=== PATIENT | female | born 1950 | race Caucasian/White ===

== ENCOUNTER 2020-05-30 15:10 | Outpatient (REF) | payer MEDICARE, SELFPAY | END 2020-05-30 15:11 | disposition home or self-care (01) | LOC: HO.LNP 15:10 | PROVIDERS: Visit Provider Internal Medicine | DX: Z20.828 Contact with and (suspected) exposure to other viral communicable diseases (principal) | CPT/HCPCS: U0003 ==

== ENCOUNTER 2020-08-01 07:16 | Outpatient (REF) | payer MEDICARE, SELFPAY ==
[2020-08-01 07:39] LABS: MANUAL DIFF FLAG NO
[2020-08-01 07:47] LABS: Basophils Percent Auto 0.6 % (0-2); Eosinophils Absolute Auto 0.2 X10*3/uL (0.0-0.4); Eosinophils Percent Auto 2.1 % (0-4); Hematocrit 44.7 % (37-47); Hemoglobin 14.8 g/dl (12.0-16.0); Imm Gran Abs Auto 0.03 X10*3/uL (0.00-0.03); Imm Gran Pct Auto 0.4 % (0.0-0.4); Lymphocytes Absolute Auto 2.5 X10*3/uL (1.2-4.9); Lymphocytes Percent Auto 35.2 % (20-40); Mean Corpuscular HGB Conc 33.1 g/dl (31.0-35.0); Mean Corpuscular Hemoglobin 28.8 pg (27.0-33.0); Mean Platelet Volume 10.3 fL (9.4-12.3); Monocytes Absolute Auto 0.5 X10*3/uL (0.1-1.2); Monocytes Percent Auto 6.5 % (2-11); Neutrophils Absolute Auto 3.9 X10*3/uL (2.0-8.3); Neutrophils Percent Auto 55.2 % (45-73); Platelet Count 225 X10*3/uL (160-400); Red Blood Count 5.14 X10*6/uL (4.20-5.50); Red Cell Distribution Width 12.1 % (11.0-16.0); White Blood Count 7.1 X10*3/uL (4.8-10.8)
[2020-08-01 07:56] LABS: Estimated Average Glucose 309 mg/dL; Hemoglobin A1c % 12.4 %
[2020-08-01 08:39] LABS: Alanine Aminotransferase 18 U/L (0-31); Albumin Level 4.3 g/dL (3.5-5.0); Alkaline Phosphatase 62 U/L (39-117); Anion Gap 14 (12-20); Aspartate Amino Transferase 14 U/L (5-31); Bilirubin Total 0.5 mg/dL (0.0-1.0); Blood Urea Nitrogen 10 mg/dL (9-16); Calcium 9.2 mg/dL (8.4-10.2); Carbon Dioxide 30 mmol/L (22-29); Chloride 95 mmol/L (96-108); Cholesterol 235 mg/dL; Estimated Glomerular Filt Rate > 60; Glucose Fasting 212 mg/dL (60-99); HDL Cholesterol 46 mg/dL; LDL Cholesterol Calculated 155 mg/dl; Potassium 4.6 mmol/L (3.3-5.1); Sodium 134 mmol/L (135-145); Total Protein 6.9 g/dL (6.5-8.0); Triglycerides 172 mg/dL
[2020-08-01 08:40] LABS: Creatinine Urine 91.15 mg/dL
== END 2020-08-01 07:17 | disposition home or self-care (01) ==
LOC: HO.LAB 07:16
PROVIDERS: Visit Provider Internal Medicine
DX: E11.9 Type 2 diabetes mellitus without complications (principal); I10 Essential (primary) hypertension; E78.00 Pure hypercholesterolemia, unspecified
CPT/HCPCS: 36415; 80053; 80061; 82043; 83036; 85025

== ENCOUNTER 2020-11-25 14:53 | Outpatient (REF) | payer MEDICARE, SELFPAY ==
--- NOTE | ~2020-11-25 | US_ITS ---
EXAMINATION: PELVIC ULTRASOUND CLINICAL INFORMATION: Question uterine prolapse COMPARISON: None TECHNIQUE: Transabdominal and transvaginal pelvic ultrasound was performed. Transvaginal exam was performed for better visualization of the uterus and ovaries. FINDINGS: The uterus appears normal in position, is anteverted and measures 7.1 x 2.6 x 3.1 cm in dimension. No focal uterine lesion is seen. There are several small calcifications seen in the uterus. The endometrium does not appear thickened measuring 0.4 cm. The cervix is normal appearing. The ovaries are not seen. There is no fluid in the pelvis. The bladder wall appears thickened. There is a mobile echogenic debris in the bladder. Correlation with urinalysis and culture recommended. US/US pelvic and transvaginal IMPRESSION: Normal-appearing uterus. Ovaries not seen. Thickened bladder wall and mobile echogenic debris in the bladder. Correlation with urinalysis and urine culture recommended.
== END 2020-11-25 14:54 | disposition home or self-care (01) ==
LOC: HO.US 14:53
PROVIDERS: PCP Internal Medicine; Visit Provider Internal Medicine
DX: N18.4 Chronic kidney disease, stage 4 (severe) (principal)
CPT/HCPCS: 76830; 76856

== ENCOUNTER 2020-12-04 06:01 | Outpatient (REF) | payer MEDICARE, SELFPAY ==
[2020-12-04 07:40] LABS: Estimated Average Glucose 326 mg/dL
[2020-12-04 07:45] LABS: Alanine Aminotransferase 17 U/L (0-31); Albumin Level 4.2 g/dL (3.5-5.0); Alkaline Phosphatase 71 U/L (39-117); Anion Gap 14 (12-20); Aspartate Amino Transferase 13 U/L (5-31); Bilirubin Total 0.4 mg/dL (0.0-1.0); Blood Urea Nitrogen 14 mg/dL (9-16); Calcium 9.6 mg/dL (8.4-10.2); Carbon Dioxide 30 mmol/L (22-29); Chloride 96 mmol/L (96-108); Estimated Glomerular Filt Rate > 60; Glucose Fasting 330 mg/dL (60-99); Potassium 5.3 mmol/L (3.3-5.1); Sodium 135 mmol/L (135-145); Total Protein 6.7 g/dL (6.5-8.0)
== END 2020-12-04 06:02 | disposition home or self-care (01) ==
LOC: HO.LAB 06:01
PROVIDERS: PCP Internal Medicine; Visit Provider Internal Medicine
DX: I10 Essential (primary) hypertension (principal); E11.9 Type 2 diabetes mellitus without complications
CPT/HCPCS: 36415; 80053; 83036

== ENCOUNTER 2020-12-16 09:58 | Outpatient (REF) | payer MEDICARE, SELFPAY ==
[2020-12-16 12:08] LABS: Glucose Urine UA >=1000 MG/DL (NEG); Leukocyte Esterase Urine 2+ (NEG); Nitrite Urine POS (NEG); Specific Gravity - Urine 1.025 (1.005-1.025); Urine Blood 2+ (NEG); Urine Ketones NEG (NEG); Urine Protein 2+ MG/DL (NEG-TRACE)
[2020-12-16 12:10] LABS: Appearance Urine CLOUDY; Color Urine YELLOW
[2020-12-16 13:06] LABS: Bacteria Urine 3+ /LPF; Squamous Epithelial Cell Urine 2+ /LPF; WBC Urine TNTC /HPF (0-4)
== END 2020-12-16 09:59 | disposition home or self-care (01) ==
LOC: HO.LAB 09:58
PROVIDERS: PCP Internal Medicine; Visit Provider Internal Medicine
DX: R30.0 Dysuria (principal)
CPT/HCPCS: 81001; 81003; 87086; 87088; 87186

== ENCOUNTER → 2020-12-23 11:12 | Outpatient (REF) | payer MEDICARE, SELFPAY ==
--- NOTE | 2020-12-23 11:30 | CA_ITS ---
Transthoracic Echocardiogram Patient (Last, First, Middle): Megan Novoa C Gender: Female Date of : 1950 Age: 70 Procedure Date: 12/23/2020 Procedure Type: Transthoracic Echocardiogram Location: OP Height: 167.64 cm Weight: 90.72 kg BSA: 2.00 m2 Heart Rate: bpm BP: 138 / 60 mmHg Hole Puncher Strap: JUANITO Referring MD: Jace Henderson MD Symptoms: R01.1 CARDIAC MURMUR Study Quality: Fair ECG Rhythm: Sinus Conclusions: - The left ventricular systolic function is hyperdynamic. The visually estimated ejection fraction is >70%. - There is moderately increased left ventricular wall thickness. - There is moderate calcification of the aortic valve. There is mild aortic valve stenosis. - There is mild mitral annular calcification. Findings Left Ventricle Normal left ventricular cavity size. There is moderately increased left ventricular wall thickness. The left ventricular systolic function is hyperdynamic. The visually estimated ejection fraction is >70%. There is no evidence of regional wall motion abnormalities. E/E prime ratio is >15, consistent with elevated filling pressures. Evidence suggests grade I (mild) diastolic dysfunction. Right Ventricle Normal right ventricular cavity size and systolic function. Atria Both atria are normal in size. Aortic Valve There is moderate calcification of the aortic valve. There is mild aortic valve stenosis. The peak aortic velocity is 2.90 m/s with a calculated peak gradient of 34 mmHg. The mean gradient is 20 mmHg. The aortic valve area is 1.90 cm2. There is no aortic valve regurgitation. Mitral Valve There is mild mitral annular calcification. There is mild mitral valve regurgitation. There is no mitral valve stenosis. Pulmonic Valve The pulmonic valve was not well visualized. Tricuspid Valve There is trace tricuspid valve regurgitation. The pulmonary artery systolic pressure is normal. Great Vessels The asc aorta is normal in size. Venous The inferior vena cava is normal in size and collapses greater than 50% with inspiration. Pericardium/Pleural There is no evidence of pericardial effusion. Prior Study Comparison No significant change compared to prior study dated: 02/06/2019. Measurements M-Mode Liner Measurements Normals - Women/Men IVSd: 1.68 0.6-0.9/0.6-1.0 cm LVIDd: 4.06 3.9-5.3/4.2-5.9 cm LVIDd Index: 2.03 1.9-3.2 cm/m2 LVIDs: 2.07 2.0-3.8 cm LVPWd: 1.62 0.6-0.9/0.6-1.0 cm LV Mass: 345.04 67-162/88-224g LV Mass Index: 172.52 43-95/49-115 g/m2 M-Mode Volumes LV EDV: 72.50 LV ESV: 13.90 2D Linear Measurements IVSd: 1.30 0.6-0.9/0.6-1.0 cm LVIDd: 4.00 3.9-5.3/4.2-5.9 cm LVIDd Index: 2.00 2.4-3.2/2.2-3.1 cm/m2 LVIDs: 2.19 2.0-3.6 cm LVPWd: 1.30 0.7-1.1 cm Ao Root: 3.00 2.1-3.5 cm LA Diam: 4.80 2.7-3.8/3.0-4.0 cm LAIDs Index: 2.40 1.5-2.3 cm/m2 LV Mass: 400.87 67-162/88-224 g LV Mass Index: 200.44 43-95/49-115 g/m2 LVOT Diam: 2.30 3.0+(-)1.3 cm 2D Systolic Function EF 4C: 65.60 >55% M-Mode Systolic Function FS: 49.00 27-47/25-43% LVEF: 80.80 >55% Mitral Valve MV Pk E: 0.92 MV PK A: 1.13 MV Decel Time: 115.00 E/A: 0.80 E'Lateral: 6.31 E'Medial: 4.13 E/E' Med: 22.20 E/E' Lat: 14.50 PHT: 34.00 MVA PHT: 6.47 Decel Yates: 8.32 Aortic Valve AoV Pk Satish: 2.90 AoV Mn Satish: 2.08 AoV VTI: 0.64 AoV Pk Grad: 34.00 Aov Mn Grad: 20.00 PAM Cont.VTI: 1.90 LVOT LVOT Pk Satish: 1.32 LVOT Mn Satish: 0.98 LVOT VTI: 0.29 LVOT Pk Grad: 7.00 LVOT Mn Grad: 4.00 LVOT Diam: 2.30 LVOT Area: 4.15 Diastolic Function MV Pk E: 0.92 MV Pk A: 1.13 E/A: 0.80 E'Medial: 4.13 E/E' Med: 22.20 E' Laterial: 6.31 E/E' Lat: 14.50 Tricuspid Valve RA Press: 3.00 Great Vessels Aorta Ao Root-2D: 3.00 2.0-3.7 cm Ao Asc: 3.50 2.1-3.4 cm Updated in Other Vendor System with Status of Final Parish Lowe MD electronically signed on 12/23/2020 12:53:42 PM with status of Final
== END ==
LOC: HO.CARD 11:12
PROVIDERS: PCP Internal Medicine; Visit Provider Internal Medicine
DX: R01.1 Cardiac murmur, unspecified (principal)
CPT/HCPCS: 93306

== ENCOUNTER 2020-12-26 11:10 | Outpatient (REF) | payer MEDICARE, SELFPAY ==
[2020-12-26 11:50] LABS: Glucose Urine UA >=1000 MG/DL (NEG); Leukocyte Esterase Urine 1+ (NEG); Nitrite Urine NEG (NEG); PH 5.5 (5.0-8.0); Specific Gravity - Urine 1.015 (1.005-1.025); UACC Culture Trigger YES; Urine Blood 1+ (NEG); Urine Ketones NEG (NEG); Urine Protein TRACE MG/DL (NEG-TRACE)
[2020-12-26 12:12] LABS: Color Urine YELLOW
[2020-12-26 12:13] LABS: Appearance Urine CLOUDY
[2020-12-26 12:16] LABS: Bacteria Urine 2+ /LPF; Mucus Urine 1+ /LPF; Squamous Epithelial Cell Urine 3+ /LPF
== END 2020-12-26 11:11 | disposition home or self-care (01) ==
LOC: HO.LAB 11:10
PROVIDERS: PCP Internal Medicine; Visit Provider Internal Medicine
DX: R30.0 Dysuria (principal)
CPT/HCPCS: 81001; 81003; 87086

== ENCOUNTER → 2021-02-10 13:38 | Outpatient (BNVA) | payer MEDICARE, SELFPAY | PROVIDERS: PCP Internal Medicine; Referring Provider Internal Medicine; Visit Provider Internal Medicine | DX: I51.7 Cardiomegaly (principal); I10 Essential (primary) hypertension; I35.0 Nonrheumatic aortic (valve) stenosis; I05.9 Rheumatic mitral valve disease, unspecified; E11.8 Type 2 diabetes mellitus with unspecified complications | CPT/HCPCS: 93005; 99202 ==

== ENCOUNTER → 2021-03-03 07:47 | Outpatient (REF) | payer MEDICARE, SELFPAY ==
--- NOTE | ~2021-03-03 | NM_ITS ---
Exercise Myocardial perfusion study Indication: Shortness of breath evaluate for myocardial ischemia Technique: The patient was brought in for an exercise perfusion study on 03/03/2021. Patient performed exercise as per Joe protocol and was injected 30 mCi of sestamibi was given intravenously one target HR was achieved. Images were obtained using the SPECT gamma camera interlaced with the gating device. Images were obtained in supine position. Resting perfusion study was performed on 03/06/2021. Patient was administered 30 mCi of sestamibi intravenously at rest. Images were then obtained in supine position. Images obtained with and without CT attenuation. Total DLP 125 mGy-cm. Images were processed with the software and compared side to side in short axis, horizontal long axis and vertical long axis views. Findings: The stress perfusion study showed nonattenuated images show minimal thinning of the apical wall of the LV myocardium. Remainder of the LV myocardium is normally perfused. Attenuation corrected images show normal uptake of radiotracer in all segments of LV myocardium. The gated study shows normal LV systolic function with calculated LVEF of 55%. LV cavity is normal in in size. The gated study shows normal systolic wall thickening and contraction of all segments. There is no transient ischemic dilation. Resting study shows no change in perfusion pattern compared to stress perfusion study. Gating at rest reveals normal systolic wall motion with ejection fraction at 61%. The findings are consistent with normal myocardial perfusion. NM/NM cardiolite stress test Impression: 1. Normal myocardial perfusion 2. Gated LVEF is 55% 3. Transient ischemic dilatation not present Stress EKG is positive for ischemia
--- NOTE | 2021-03-03 08:00 | CA_ITS ---
Acquisition Time: 2021-03-03 08:02:20 Total Exercise Time: 00:05:00 Test Indications: ABN ECHO, CAD Medications: GLIPIZIDE LISINOPRIL METFORMIN Protocol: KEILY Max HR: 142 BPM 95% of Pred: 148 BPM Max BP: 196/076 mmHG Max Work Load: 7.0 METS Exercise stress test with exercise 5 min of Keily protocol, with 3/10 mid chest heaviness, moderate shortness of breath, with PACs noted at baseline, with normotensive response to exercise, with max BP 196/76, with EKG changes meeting criteria for ischemia: up to [address] depression V5-V6, 1mm ST elevation aVR with gradual improvement back to baselineT wave inversions lateral leads, with borderline ST depression inferiorly during recovery. At baseline and in recovery P waves have decreased voltage intermittently for unclear reason. Chest pressure and sob resolved in recovery. Nuclear images pending. test reviewed with Dr Patrick Referred By: Parish Lowe Overread By: HERMELINDO LOREDO
== END ==
LOC: HO.CARD 07:47
PROVIDERS: PCP Internal Medicine; Visit Provider Internal Medicine
DX: I05.9 Rheumatic mitral valve disease, unspecified (principal); R06.02 Shortness of breath
CPT/HCPCS: 78452; 93017; A9500

== ENCOUNTER 2021-03-10 06:00 | Outpatient (REF) | payer MEDICARE, SELFPAY ==
[2021-03-10 07:02] LABS: MANUAL DIFF FLAG NO
[2021-03-10 07:12] LABS: Basophils Percent Auto 0.4 % (0-2); Eosinophils Absolute Auto 0.1 X10*3/uL (0.0-0.4); Hematocrit 42.2 % (37-47); Hemoglobin 13.8 g/dl (12.0-16.0); Imm Gran Abs Auto 0.03 X10*3/uL (0.00-0.03); Imm Gran Pct Auto 0.4 % (0.0-0.4); Lymphocytes Absolute Auto 2.1 X10*3/uL (1.2-4.9); Lymphocytes Percent Auto 30.7 % (20-40); Mean Corpuscular HGB Conc 32.7 g/dl (31.0-35.0); Mean Corpuscular Hemoglobin 28.6 pg (27.0-33.0); Mean Corpuscular Volume 87.4 fL (80-98); Monocytes Absolute Auto 0.4 X10*3/uL (0.1-1.2); Monocytes Percent Auto 6.3 % (2-11); Neutrophils Absolute Auto 4.2 X10*3/uL (2.0-8.3); Neutrophils Percent Auto 60.2 % (45-73); Platelet Count 233 X10*3/uL (160-400); Red Blood Count 4.83 X10*6/uL (4.20-5.50); Red Cell Distribution Width 12.7 % (11.0-16.0); White Blood Count 6.9 X10*3/uL (4.8-10.8)
[2021-03-10 07:34] LABS: Creatinine Urine 64.52 mg/dL; Microalbum/Creatinine Ratio Ur 192.1 ug/mg cr
[2021-03-10 07:40] LABS: Alanine Aminotransferase 22 U/L (0-31); Albumin Level 4.3 g/dL (3.5-5.0); Alkaline Phosphatase 56 U/L (39-117); Anion Gap 13 (12-20); Aspartate Amino Transferase 16 U/L (5-31); Bilirubin Total 0.4 mg/dL (0.0-1.0); Blood Urea Nitrogen 12 mg/dL (9-16); Calcium 9.2 mg/dL (8.4-10.2); Carbon Dioxide 29 mmol/L (22-29); Chloride 99 mmol/L (96-108); Estimated Glomerular Filt Rate > 60; Glucose Fasting 252 mg/dL (60-99); Potassium 4.7 mmol/L (3.3-5.1); Sodium 136 mmol/L (135-145); Total Protein 6.8 g/dL (6.5-8.0)
[2021-03-10 07:52] LABS: Thyroid Stimulating Hormone 3.19 uIU/mL (0.32-4.0)
[2021-03-10 08:40] LABS: Estimated Average Glucose 315 mg/dL; Hemoglobin A1c % 12.6 %
== END 2021-03-10 06:01 | disposition home or self-care (01) ==
LOC: HO.LAB 06:00
PROVIDERS: PCP Internal Medicine; Visit Provider Internal Medicine
DX: E11.9 Type 2 diabetes mellitus without complications (principal); I10 Essential (primary) hypertension; E78.00 Pure hypercholesterolemia, unspecified; R53.83 Other fatigue
CPT/HCPCS: 36415; 80053; 82043; 83036; 84443; 85025

== ENCOUNTER → 2021-03-25 14:21 | Outpatient (BNVA) | payer MEDICARE, SELFPAY | PROVIDERS: PCP Internal Medicine; Referring Provider Internal Medicine; Visit Provider Nurse Practitioner Family | DX: I35.0 Nonrheumatic aortic (valve) stenosis (principal); I51.7 Cardiomegaly; I10 Essential (primary) hypertension; I05.9 Rheumatic mitral valve disease, unspecified; G47.10 Hypersomnia, unspecified; R94.31 Abnormal electrocardiogram [ECG] [EKG] | CPT/HCPCS: 99212 ==

== ENCOUNTER 2021-10-15 06:02 | Outpatient (REF) | payer MEDICARE, SELFPAY ==
[2021-10-15 06:16] LABS: MANUAL DIFF FLAG NO
[2021-10-15 06:54] LABS: Basophils Percent Auto 0.5 % (0-2); Eosinophils Absolute Auto 0.1 X10*3/uL (0.0-0.4); Eosinophils Percent Auto 1.7 % (0-4); Hematocrit 44.4 % (37.0-47.0); Hemoglobin 14.6 g/dl (12.0-16.0); Imm Gran Abs Auto 0.03 X10*3/uL (0.00-0.03); Imm Gran Pct Auto 0.4 % (0.0-0.4); Lymphocytes Absolute Auto 2.1 X10*3/uL (1.2-4.9); Lymphocytes Percent Auto 27.3 % (20-40); Mean Corpuscular HGB Conc 32.9 g/dl (31.0-35.0); Mean Corpuscular Hemoglobin 28.9 pg (27.0-33.0); Mean Corpuscular Volume 87.7 fL (80.0-98.0); Mean Platelet Volume 10.6 fL (9.4-12.3); Monocytes Absolute Auto 0.5 X10*3/uL (0.1-1.2); Monocytes Percent Auto 6.2 % (2-11); Neutrophils Percent Auto 63.9 % (45-73); Platelet Count 247 X10*3/uL (160-400); Red Blood Count 5.06 X10*6/uL (4.20-5.50); Red Cell Distribution Width 12.3 % (11.0-16.0); White Blood Count 7.8 X10*3/uL (4.8-10.8)
[2021-10-15 07:23] LABS: Alanine Aminotransferase 19 U/L (0-31); Albumin Level 4.2 g/dL (3.5-5.0); Alkaline Phosphatase 61 U/L (39-117); Anion Gap 14 (12-20); Aspartate Amino Transferase 13 U/L (5-31); Bilirubin Total 0.5 mg/dL (0.0-1.0); Blood Urea Nitrogen 10 mg/dL (9-16); Calcium 9.6 mg/dL (8.4-10.2); Carbon Dioxide 30 mmol/L (22-29); Chloride 94 mmol/L (96-108); Cholesterol 230 mg/dL; Estimated Glomerular Filt Rate > 60; Glucose Fasting 281 mg/dL (60-99); HDL Cholesterol 44 mg/dL; LDL Cholesterol Calculated 143 mg/dl; Potassium 4.5 mmol/L (3.3-5.1); Sodium 133 mmol/L (135-145); Total Protein 7.1 g/dL (6.5-8.0); Triglycerides 219 mg/dL
[2021-10-15 08:06] LABS: Estimated Average Glucose 341 mg/dL; Hemoglobin A1c % 13.5 %
== END 2021-10-15 06:03 | disposition home or self-care (01) ==
LOC: HO.LAB 06:02
PROVIDERS: PCP Internal Medicine; Visit Provider Internal Medicine
DX: E11.9 Type 2 diabetes mellitus without complications (principal); E78.00 Pure hypercholesterolemia, unspecified; I10 Essential (primary) hypertension
CPT/HCPCS: 36415; 80053; 80061; 83036; 85025

== ENCOUNTER 2022-02-08 05:52 | Outpatient (REF) | payer MEDICARE, SELFPAY ==
[2022-02-08 07:26] LABS: Estimated Average Glucose 344 mg/dL; Hemoglobin A1c % 13.6 %
[2022-02-08 07:35] LABS: Creatinine Urine 94.49 mg/dL
[2022-02-08 07:37] LABS: Alanine Aminotransferase 21 U/L (0-31); Albumin Level 4.2 g/dL (3.5-5.0); Alkaline Phosphatase 52 U/L (39-117); Anion Gap 16 (12-20); Aspartate Amino Transferase 14 U/L (5-31); Bilirubin Total 0.3 mg/dL (0.0-1.0); Blood Urea Nitrogen 15 mg/dL (9-16); Carbon Dioxide 27 mmol/L (22-29); Chloride 98 mmol/L (96-108); Cholesterol 187 mg/dL; Estimated Glomerular Filt Rate > 60; Glucose Fasting 307 mg/dL (60-99); HDL Cholesterol 44 mg/dL; LDL Cholesterol Calculated 112 mg/dl; Potassium 4.5 mmol/L (3.3-5.1); Sodium 136 mmol/L (135-145); Total Protein 6.8 g/dL (6.5-8.0); Triglycerides 156 mg/dL
== END 2022-02-08 05:53 | disposition home or self-care (01) ==
LOC: HO.LAB 05:52
PROVIDERS: Visit Provider Internal Medicine
DX: E11.9 Type 2 diabetes mellitus without complications (principal); I10 Essential (primary) hypertension; E78.00 Pure hypercholesterolemia, unspecified
CPT/HCPCS: 36415; 80053; 80061; 82043; 83036

== ENCOUNTER 2022-03-09 11:58 | Outpatient (REF) | payer MEDICARE, SELFPAY ==
[2022-03-09 12:59] LABS: Influenza A PCR NEGATIVE (Negative); Influenza B PCR NEGATIVE (Negative); Resp Syncy Virus RNA Qual PCR NEGATIVE (Negative); SARS COV2 PCR INHOUSE NEGATIVE (Negative)
== END 2022-03-09 11:59 | disposition home or self-care (01) ==
LOC: HO.LNP 11:58
PROVIDERS: Visit Provider Internal Medicine
DX: Z20.822 Contact with and (suspected) exposure to COVID-19 (principal); R05.9 Cough, unspecified
CPT/HCPCS: 0241U

== ENCOUNTER 2022-06-01 05:54 | Outpatient (REF) | payer MEDICARE, SELFPAY ==
[2022-06-01 07:41] LABS: Hemoglobin A1c % > 14.0 %
[2022-06-01 07:56] LABS: Anion Gap 15 (12-20); Blood Urea Nitrogen 14 mg/dL (9-16); Calcium 9.5 mg/dL (8.4-10.2); Carbon Dioxide 29 mmol/L (22-29); Chloride 96 mmol/L (96-108); Estimated Glomerular Filt Rate > 60; Glucose Random 340 mg/dL (60-115); Potassium 4.8 mmol/L (3.3-5.1); Sodium 135 mmol/L (135-145)
[2022-06-01 08:07] LABS: Microalbum/Creatinine Ratio Ur 995.9 ug/mg cr
== END 2022-06-01 05:55 | disposition home or self-care (01) ==
LOC: HO.LAB 05:54
PROVIDERS: PCP Internal Medicine; Visit Provider Internal Medicine
DX: I10 Essential (primary) hypertension (principal); E11.9 Type 2 diabetes mellitus without complications
CPT/HCPCS: 36415; 80048; 82043; 83036

== ENCOUNTER 2022-09-09 05:56 | Outpatient (REF) | payer MEDICARE, SELFPAY ==
[2022-09-09 06:02] LABS: MANUAL DIFF FLAG NO
[2022-09-09 07:31] LABS: Basophils Percent Auto 0.5 % (0-2); Eosinophils Absolute Auto 0.1 X10*3/uL (0.0-0.4); Eosinophils Percent Auto 1.5 % (0-4); Hematocrit 43.7 % (37.0-47.0); Hemoglobin 14.4 g/dl (12.0-16.0); Imm Gran Abs Auto 0.04 X10*3/uL (0.00-0.03); Imm Gran Pct Auto 0.5 % (0.0-0.4); Lymphocytes Absolute Auto 2.3 X10*3/uL (1.2-4.9); Lymphocytes Percent Auto 30.8 % (20-40); Mean Corpuscular Hemoglobin 28.5 pg (27.0-33.0); Mean Corpuscular Volume 86.4 fL (80.0-98.0); Monocytes Absolute Auto 0.5 X10*3/uL (0.1-1.2); Monocytes Percent Auto 6.9 % (2-11); Neutrophils Absolute Auto 4.4 x10*3/uL (2.0-8.3); Neutrophils Percent Auto 59.8 % (45-73); Platelet Count 225 X10*3/uL (160-400); Red Blood Count 5.06 X10*6/uL (4.20-5.50); Red Cell Distribution Width 12.4 % (11.0-16.0); White Blood Count 7.4 X10*3/uL (4.8-10.8)
[2022-09-09 07:41] LABS: Hemoglobin A1c % > 14.0 %
[2022-09-09 07:59] LABS: Alanine Aminotransferase 16 U/L (0-31); Albumin Level 4.2 g/dL (3.5-5.0); Alkaline Phosphatase 58 U/L (39-117); Anion Gap 16 (12-20); Aspartate Amino Transferase 14 U/L (5-31); Bilirubin Total 0.5 mg/dL (0.0-1.0); Blood Urea Nitrogen 12 mg/dL (9-16); Calcium 9.1 mg/dL (8.4-10.2); Carbon Dioxide 28 mmol/L (22-29); Chloride 97 mmol/L (96-108); Cholesterol 194 mg/dL; Estimated Glomerular Filt Rate > 60; Glucose Fasting 318 mg/dL (60-99); HDL Cholesterol 44 mg/dL; LDL Cholesterol Calculated 111 mg/dl; Potassium 4.9 mmol/L (3.3-5.1); Sodium 136 mmol/L (135-145); Total Protein 6.7 g/dL (6.5-8.0); Triglycerides 199 mg/dL
== END 2022-09-09 05:57 | disposition home or self-care (01) ==
LOC: HO.LAB 05:56
PROVIDERS: PCP Internal Medicine; Visit Provider Internal Medicine
DX: E11.9 Type 2 diabetes mellitus without complications (principal); E78.5 Hyperlipidemia, unspecified; I10 Essential (primary) hypertension
CPT/HCPCS: 36415; 80053; 80061; 83036; 85025

== ENCOUNTER 2023-01-06 05:59 | Outpatient (REF) | payer MEDICARE, SELFPAY ==
[2023-01-06 07:37] LABS: Estimated Average Glucose 318 mg/dL; Hemoglobin A1c % 12.7 %
[2023-01-06 08:27] LABS: Anion Gap 18 (12-20); Blood Urea Nitrogen 13 mg/dL (9-16); Calcium 9.7 mg/dL (8.4-10.2); Carbon Dioxide 24 mmol/L (22-29); Chloride 98 mmol/L (96-108); Cholesterol 170 mg/dL; Estimated Glomerular Filt Rate > 60; Glucose Random 305 mg/dL (60-115); HDL Cholesterol 42 mg/dL; LDL Cholesterol Calculated 99 mg/dl; Potassium 4.6 mmol/L (3.3-5.1); Sodium 135 mmol/L (135-145); Triglycerides 147 mg/dL
== END 2023-01-06 06:00 | disposition home or self-care (01) ==
LOC: HO.LAB 05:59
PROVIDERS: PCP Internal Medicine; Visit Provider Internal Medicine
DX: I10 Essential (primary) hypertension (principal); E11.9 Type 2 diabetes mellitus without complications
CPT/HCPCS: 36415; 80048; 80061; 83036

== ENCOUNTER 2023-04-15 05:59 | Outpatient (REF) | payer MEDICARE, SELFPAY ==
[2023-04-15 07:25] LABS: Estimated Average Glucose 243 mg/dL; Hemoglobin A1c % 10.1 % (<6.0)
[2023-04-15 07:40] LABS: Anion Gap 12 (12-20); Blood Urea Nitrogen 11 mg/dL (9-16); Calcium 9.3 mg/dL (8.4-10.2); Carbon Dioxide 29 mmol/L (22-29); Chloride 98 mmol/L (96-108); Estimated Glomerular Filt Rate > 60; Glucose Random 193 mg/dL (60-115); Potassium 4.4 mmol/L (3.3-5.1); Sodium 135 mmol/L (135-145)
== END 2023-04-15 06:00 | disposition home or self-care (01) ==
LOC: HO.LAB 05:59
PROVIDERS: PCP Internal Medicine; Visit Provider Internal Medicine
DX: I10 Essential (primary) hypertension (principal); J44.9 Chronic obstructive pulmonary disease, unspecified; E11.9 Type 2 diabetes mellitus without complications
CPT/HCPCS: 36415; 80048; 83036

== ENCOUNTER → 2023-05-10 07:54 | Outpatient (REF) | payer MEDICARE, SELFPAY ==
--- NOTE | 2023-05-10 07:58 | CA_ITS ---
Transthoracic Echocardiogram Patient (Last, First, Middle): Megan Novoa C Gender: Female Date of : 1950 Age: 73 Procedure Date: 05/10/2023 Procedure Type: Transthoracic Echocardiogram Location: OP Height: 167.64 cm Weight: 86.18 kg BSA: 1.96 m2 Heart Rate: bpm BP: 128 / 80 mmHg Drum Filler: Referring MD: Jace Henderson MD Packer Denture: Ford Patrick MD Symptoms: R10.0 ACUTE ABDOMEN. ASSES MURMUR LVH Study Quality: Fair ECG Rhythm: Sinus Conclusions: - 1. Normal LV ejection fraction 55-60% with moderate LVH with impaired relaxation filling pattern 2. Mildly dilated left atrium 3. Mild aortic stenosis 4. Upper limits of normal ascending aortic size 5. Normal RV systolic pressure 6. No gross pericardial effusion Findings Left Ventricle Normal left ventricular size and systolic function. There is moderately increased left ventricular wall thickness. The visually estimated ejection fraction is between 55-60%. Spectral Doppler is indicative of an impaired relaxation filling pattern. E/E prime ratio is between 8 and 15 consistent with indeterminate filling pressures. Peak GLS is -13.1%, which is moderately reduced. Right Ventricle Normal right ventricular cavity size and systolic function. Atria The left atrium is mildly dilated. Interatrial shunt cannot be excluded. The right atrium is likely dilated. Aortic Valve The aortic valve was not well visualized. There is mild calcification of the aortic valve. There is mild aortic valve stenosis. The peak aortic gradient is 22 mmHg.The mean gradient is 13 mmHg. The aortic valve area is 1.61 cm2. There is no aortic valve regurgitation. Mitral Valve There is mild anterior and moderate posterior mitral leaflet thickening. There is moderate mitral annular calcification. There is trace mitral valve regurgitation. There is no mitral valve stenosis. Pulmonic Valve The pulmonic valve is likely normal. Tricuspid Valve Normal tricuspid valve structure. There is trace tricuspid valve regurgitation. The right ventricular systolic pressure is normal. The right ventricular systolic pressure is 19 mmHg. Normal right atrial pressure. There is no evidence of pulmonary hypertension. Great Vessels The pulmonary artery was not well visualized. Venous The inferior vena cava is normal in size and collapses greater than 50% with inspiration. Pericardium/Pleural There is no evidence of pericardial effusion. Measurements 2D Linear Measurements IVSd: 1.56 0.6-0.9/0.6-1.0 cm LVIDd: 4.19 3.9-5.3/4.2-5.9 cm LVIDd Index: 2.14 2.4-3.2/2.2-3.1 cm/m2 LVIDs: 2.68 2.0-3.6 cm LVPWd: 1.48 0.7-1.1 cm Ao Root: 3.20 2.1-3.5 cm LA Diam: 4.70 2.7-3.8/3.0-4.0 cm LAIDs Index: 2.40 1.5-2.3 cm/m2 LV Mass: 316.55 67-162/88-224 g LV Mass Index: 161.50 43-95/49-115 g/m2 LVOT Diam: 2.20 3.0+(-)1.3 cm Mitral Valve MV Pk E: 0.59 MV PK A: 0.92 MV Decel Time: 261.00 E/A: 0.60 E'Lateral: 4.57 E'Medial: 4.57 E/E' Med: 12.80 E/E' Lat: 12.80 PHT: 76.00 MVA PHT: 2.89 Decel Harvey: 2.25 Aortic Valve AoV Pk Satish: 2.36 AoV Mn Satish: 1.70 AoV VTI: 0.52 AoV Pk Grad: 22.00 Aov Mn Grad: 13.00 PAM Cont.VTI: 1.61 LVOT LVOT Pk Satish: 0.90 LVOT Mn Satish: 0.57 LVOT VTI: 0.22 LVOT Pk Grad: 3.00 LVOT Mn Grad: 2.00 LVOT Diam: 2.20 LVOT Area: 3.80 Diastolic Function MV Pk E: 0.59 MV Pk A: 0.92 E/A: 0.60 E'Medial: 4.57 E/E' Med: 12.80 E' Laterial: 4.57 E/E' Lat: 12.80 Right Ventricle TAPSE (mm): 21.00 TVS' Satish: 9.00 Tricuspid Valve TR Pk Satish: 1.98 TR Pk Grad: 16.00 RA Press: 3.00 RVSP: 19.00 Great Vessels Aorta Ao Root-2D: 3.20 2.0-3.7 cm Ao Asc: 3.60 2.1-3.4 cm Pulmonary Valve PV Pk Satish: 0.89 Peak PV Grad: 3.00 Updated in Other Vendor System with Status of Final Ford Patrick MD electronically signed on 05/10/2023 6:52:37 PM with status of Final
== END ==
LOC: HO.CARD 07:54
PROVIDERS: PCP Internal Medicine; Visit Provider Internal Medicine
DX: R10.0 Acute abdomen (principal)
CPT/HCPCS: 93306; 93356

== ENCOUNTER → 2023-05-10 07:58 | Outpatient (BNV) | payer MEDICARE, SELFPAY | PROVIDERS: PCP Internal Medicine; Visit Provider Internal Medicine Cardiovascular Disease | DX: I35.0 Nonrheumatic aortic (valve) stenosis (principal) | CPT/HCPCS: 93306 ==

== ENCOUNTER 2023-07-12 08:03 | Outpatient (AMB) | payer MEDICARE, SELFPAY ==
--- NOTE | 2023-07-12 08:22 | A.OFFVIS_ITS ---
Intake Vital Signs 07/12/23 08:25 Height 5 ft 6 in Weight 202 lb 6.15 oz BMI 32.7 BP 180/80 H Blood Pressure Location Lt brachial Position Sitting Pulse 67 Intake Visit Reasons: Follow up per Dr. Henderson/Dharmesh LVH Intake Note: follow up Photographic Process Worker Required: No Accompanied by: Self / Same As Patient Allergies No Known Allergies Allergy (Verified 07/12/23 08:27) Medication List - Last Reconciled 07/12/23 by Parish Lowe MD biotin 1 mg PO DAILY glipizide 10 mg PO BID lisinopril 10 mg PO DAILY metformin 1,000 mg PO BID [id number]-FA-vit K-lut 8 mg iron-400 mcg-50 mcg (Centrum Silver Women) 1 tab PO DAILY omega-3 fatty acids (Fish Oil Concentrate) 1,000 mg PO DAILY semaglutide (Ozempic) mg subcut turmeric mg PO HPI HPI Comments History of Present Illness Details Megan has been referred for follow-up. A recent echocardiogram had shown moderate left ventricular hypertrophy. This is similar to a prior study from 2020. Today's blood pressure is quite high but she seems absolutely convinced that it is because of drinking numerous cups of coffee. When I mentioned that she might indeed be running high blood pressures she began somewhat defensive. She is not checking any home blood pressures but she still keeps repeating that her pressures are otherwise completely normal. In terms of symptoms, she does not have anything cardiac sounding like angina. We discussed about different risk factors for coronary disease including high blood pressure, diabetes extra but she stated that 'when it is my time, it is'. [facility] Surgical History No pertinent past surgical history Family History Father No problems noted. Mother Heart disease Social History Alcohol intake: never Patient Tobacco Use Status: Former Tobacco user Quit Date: 11/19/2003 Review of Systems Const Denies weakness ENT Denies dizziness Card Denies chest pain, Denies chest pain with activity, Denies syncope, Denies rapid heart rate, Denies pedal edema, Denies edema, Denies leg edema, Denies lightheadedness, Denies palpitations, Denies dyspnea, Denies dyspnea on exertion and Denies orthopnea Resp Denies cough, Denies dyspnea and Denies dyspnea on exertion GI Denies hematochezia and Denies change in stool character Musc Denies abnormal gait, Denies muscle cramps, Denies muscle weakness, Denies numbness, Denies radiating pain into limb and Denies tingling Neuro Denies abnormal gait, Denies dizziness, Denies syncope, Denies numbness, Denies tingling and Denies weakness Endo Denies palpitations Physical Exam Vital Signs: Last Vital Signs Pulse 67 07/12/23 08:25 BP 180/80 H 07/12/23 08:25 BMI result Body Mass Index 32.7 Const General: comfortable and no acute distress Orientation/consciousness: patient oriented x3 HEENT Other: Unremarkable Head: Yes normal to inspection Neck Neck: Yes normal visual inspection Chest Chest palpation & inspection: normal inspection of the chest Resp Auscultation: clear to auscultation bilaterally Cardio Palpation: normal PMI Heart sounds: S1 normal heart sound present, S2 normal heart sound present, no gallops, no murmurs and no rubs GI Palpation (GI): Soft to palpation Back/Spine/Pelvis Other: unremarkable Skin General skin exam: no rashes or lesions noted Neuro General: patient oriented x3 Extrem General: Yes normal to inspection Psych Mental Status: mental status grossly normal Office Procedures EKG Details: EKG with sinus rhythm at 67/Min; possible old anteroseptal infarct versus from body habitus; lateral T inversions. Similar to prior EKG. [id number], Complete Assessment & Plan Assessment & Plan (1) LVH (left ventricular hypertrophy): Code(s): I51.7 - Cardiomegaly Plan: Left ventricular hypertrophy seen on the echocardiogram is likely from hypertension. Today's blood pressure is quite high, but she is absolutely convinced it is because of coffee and not interested in any suggestions. We discussed about home blood pressure monitoring but she does not want to do that either. She insisted that her pressures are otherwise completely normal. She finally stated that she will just follow that up with her own PCP during the next appointment coming up later this week. Myocardial perfusion imaging study from 2020 showed normal perfusion. (2) Essential hypertension: Code(s): I10 - Essential (primary) hypertension Plan: Per patient preference, may follow up with her own PCP for any medication changes. (3) Non-rheumatic aortic stenosis: Code(s): I35.0 - Nonrheumatic aortic (valve) stenosis Plan: Mild aortic stenosis on the echocardiogram. Not hemodynamically significant at this time. Consider another echocardiogram in about 3 years. (4) Mitral annular calcification: Code(s): I05.9 - Rheumatic mitral valve disease, unspecified Plan: Moderate mitral annular calcification on the echocardiogram. However, no significant valvular dysfunction. Coding Level of Care Code Est Pt Level 4 (07412) Diagnoses LVH (left ventricular hypertrophy) I51.7 Essential hypertension I10 Non-rheumatic aortic stenosis I35.0 Mitral annular calcification I05.9 CPT Codes EKG - CPT: 37617-[id number], Complete ([id number])
[2023-07-12 08:25] VITALS: BP 180/80; PULSE 67; BMI 32.7
== END 2023-07-12 08:42 | disposition home or self-care (01) ==
PROVIDERS: PCP Internal Medicine; Visit Provider Internal Medicine
DX: I51.7 Cardiomegaly (principal); I10 Essential (primary) hypertension; I35.0 Nonrheumatic aortic (valve) stenosis; I05.9 Rheumatic mitral valve disease, unspecified
CPT/HCPCS: 93010; 99214

== ENCOUNTER → 2023-07-12 08:03 | Outpatient (BNVA) | payer MEDICARE, SELFPAY | PROVIDERS: PCP Internal Medicine; Visit Provider Internal Medicine | DX: I11.9 Hypertensive heart disease without heart failure (principal); I35.0 Nonrheumatic aortic (valve) stenosis; I05.9 Rheumatic mitral valve disease, unspecified | CPT/HCPCS: 93005; 99212 ==

== ENCOUNTER 2023-07-13 06:00 | Outpatient (REF) | payer MEDICARE, SELFPAY ==
[2023-07-13 06:17] LABS: MANUAL DIFF FLAG NO
[2023-07-13 07:45] LABS: Basophils Absolute Auto 0.1 X10*3/uL (0.0-0.2); Basophils Percent Auto 0.7 % (0-2); Eosinophils Absolute Auto 0.2 X10*3/uL (0.0-0.4); Eosinophils Percent Auto 1.9 % (0-4); Hematocrit 43.6 % (37.0-47.0); Hemoglobin 14.6 g/dl (12.0-16.0); Imm Gran Abs Auto 0.02 X10*3/uL (0.00-0.03); Imm Gran Pct Auto 0.2 % (0.0-0.4); Lymphocytes Absolute Auto 2.1 X10*3/uL (1.2-4.9); Lymphocytes Percent Auto 24.7 % (20-40); Mean Corpuscular HGB Conc 33.5 g/dl (31.0-35.0); Mean Corpuscular Volume 86.5 fL (80.0-98.0); Mean Platelet Volume 10.8 fL (9.4-12.3); Monocytes Absolute Auto 0.5 X10*3/uL (0.1-1.2); Monocytes Percent Auto 6.2 % (2-11); Neutrophils Absolute Auto 5.5 x10*3/uL (2.0-8.3); Neutrophils Percent Auto 66.3 % (45-73); Platelet Count 262 X10*3/uL (160-400); Red Blood Count 5.04 X10*6/uL (4.20-5.50); Red Cell Distribution Width 12.4 % (11.0-16.0); White Blood Count 8.3 X10*3/uL (4.8-10.8)
[2023-07-13 07:59] LABS: Alanine Aminotransferase 14 U/L (0-31); Albumin Level 4.2 g/dL (3.5-5.0); Alkaline Phosphatase 54 U/L (39-117); Anion Gap 13 (12-20); Aspartate Amino Transferase 13 U/L (5-31); Bilirubin Total 0.4 mg/dL (0.0-1.0); Blood Urea Nitrogen 11 mg/dL (9-16); Calcium 9.4 mg/dL (8.4-10.2); Carbon Dioxide 29 mmol/L (22-29); Chloride 98 mmol/L (96-108); Estimated Glomerular Filt Rate > 60; Glucose Random 217 mg/dL (60-115); Sodium 136 mmol/L (135-145); Total Protein 7.1 g/dL (6.5-8.0)
[2023-07-13 08:01] LABS: Estimated Average Glucose 235 mg/dL; Hemoglobin A1c % 9.8 % (<6.0)
[2023-07-13 08:51] LABS: Microalbum/Creatinine Ratio Ur 828.3 ug/mg cr (<30)
== END 2023-07-13 06:01 | disposition home or self-care (01) ==
LOC: HO.LAB 06:00
PROVIDERS: PCP Internal Medicine; Visit Provider Internal Medicine
DX: I10 Essential (primary) hypertension (principal); E11.9 Type 2 diabetes mellitus without complications
CPT/HCPCS: 36415; 80053; 82043; 82570; 83036; 85025

== ENCOUNTER 2023-08-16 09:45 | Outpatient (REF) | payer MEDICARE, SELFPAY ==
--- NOTE | ~2023-08-16 | US_ITS ---
EXAMINATION: US EXTRACRANIAL CAROTID DUPLEX, BILATERAL CLINICAL INFORMATION: Carotid bruit COMPARISON: Carotid duplex on 12/12/2017 TECHNIQUE: Real-time ultrasound and Doppler techniques (integrating B-mode 2-D vascular images, Doppler spectral analysis and color-flow Doppler imaging) were utilized to interrogate the extracranial carotid arteries, the vertebral arteries and proximal subclavian arteries bilaterally. The degree of stenosis is determined by criteria similar to NASCET. FINDINGS: Right Side: 1. There is mild atherosclerotic plaque seen in the bifurcation/proximal ICA region. 2. The common carotid artery PSV proximally is 77 cm/s and distally 76 cm/s. 3. The proximal internal carotid artery velocities are 64 cm/s systolic and 18 cm/s diastolic. 4. The proximal external carotid artery PSV is 98 cm/s. 5. The vertebral artery shows antegrade flow. 6. The subclavian artery waveforms are normal. Left Side: 1. There is mild atherosclerotic plaque seen in the bifurcation/proximal ICA region. 2. The common carotid artery PSV proximally is 113 cm/s and distally 104 cm/s. 3. The proximal internal carotid artery velocities are 60 cm/s systolic and 23 cm/s diastolic. 4. The proximal external carotid artery PSV is 112 cm/s. 5. The vertebral artery shows antegrade flow. 6. The subclavian artery waveforms are normal. US/US carotid duplex BI IMPRESSION: 1. RIGHT: Minimal, non-hemodynamically significant stenosis of the proximal right internal carotid artery corresponding to a 0-49% stenosis by velocity criteria. 2. LEFT: Minimal, non-hemodynamically significant stenosis of the proximal left internal carotid artery corresponding to a 0-49% stenosis by velocity criteria. 3. There is no change in the category severity of disease when compared to the previous study dated 2017.
== END 2023-08-16 09:46 | disposition home or self-care (01) ==
LOC: HO.US 09:45
PROVIDERS: PCP Internal Medicine; Visit Provider Internal Medicine
DX: R09.89 Other specified symptoms and signs involving the circulatory and respiratory systems (principal)
CPT/HCPCS: 93880

== ENCOUNTER 2023-10-24 05:55 | Outpatient (REF) | payer MEDICARE, SELFPAY ==
[2023-10-24 06:12] LABS: MANUAL DIFF FLAG NO
[2023-10-24 07:51] LABS: Basophils Absolute Auto 0.1 X10*3/uL (0.0-0.2); Basophils Percent Auto 0.7 % (0-2); Eosinophils Absolute Auto 0.2 X10*3/uL (0.0-0.4); Eosinophils Percent Auto 2.2 % (0-4); Hematocrit 42.9 % (37.0-47.0); Hemoglobin 14.3 g/dl (12.0-16.0); Imm Gran Abs Auto 0.03 X10*3/uL (0.00-0.03); Imm Gran Pct Auto 0.4 % (0.0-0.4); Lymphocytes Absolute Auto 2.1 X10*3/uL (1.2-4.9); Lymphocytes Percent Auto 28.4 % (20-40); Mean Corpuscular HGB Conc 33.3 g/dl (31.0-35.0); Mean Corpuscular Hemoglobin 28.8 pg (27.0-33.0); Mean Corpuscular Volume 86.3 fL (80.0-98.0); Mean Platelet Volume 10.8 fL (9.4-12.3); Monocytes Absolute Auto 0.5 X10*3/uL (0.1-1.2); Monocytes Percent Auto 6.5 % (2-11); Neutrophils Absolute Auto 4.6 x10*3/uL (2.0-8.3); Neutrophils Percent Auto 61.8 % (45-73); Platelet Count 245 X10*3/uL (160-400); Red Blood Count 4.97 X10*6/uL (4.20-5.50); Red Cell Distribution Width 12.4 % (11.0-16.0); White Blood Count 7.4 X10*3/uL (4.8-10.8)
[2023-10-24 07:56] LABS: Estimated Average Glucose 266 mg/dL; Hemoglobin A1c % 10.9 % (<6.0)
[2023-10-24 08:35] LABS: Creatinine Urine 54.08 mg/dL; Microalbum/Creatinine Ratio Ur 663.8 ug/mg cr (<30)
[2023-10-24 08:36] LABS: Alanine Aminotransferase 13 U/L (0-31); Albumin Level 4.2 g/dL (3.5-5.0); Alkaline Phosphatase 53 U/L (39-117); Anion Gap 14 (12-20); Aspartate Amino Transferase 14 U/L (5-31); Bilirubin Total 0.3 mg/dL (0.0-1.0); Blood Urea Nitrogen 10 mg/dL (9-16); Calcium 9.8 mg/dL (8.4-10.2); Carbon Dioxide 31 mmol/L (22-29); Chloride 97 mmol/L (96-108); Estimated Glomerular Filt Rate > 60; Glucose Random 252 mg/dL (60-115); Sodium 137 mmol/L (135-145); Total Protein 7.2 g/dL (6.5-8.0)
== END 2023-10-24 05:56 | disposition home or self-care (01) ==
LOC: HO.LAB 05:55
PROVIDERS: PCP Internal Medicine; Visit Provider Internal Medicine
DX: I10 Essential (primary) hypertension (principal); E11.9 Type 2 diabetes mellitus without complications; K21.9 Gastro-esophageal reflux disease without esophagitis
CPT/HCPCS: 36415; 80053; 82043; 82570; 83036; 85025

== ENCOUNTER 2024-02-23 05:58 | Outpatient (REF) | payer MEDICARE, SELFPAY ==
[2024-02-23 06:16] LABS: MANUAL DIFF FLAG NO
[2024-02-23 07:21] LABS: Basophils Absolute Auto 0.1 X10*3/uL (0.0-0.2); Basophils Percent Auto 0.5 % (0-2); Eosinophils Absolute Auto 0.2 X10*3/uL (0.0-0.4); Eosinophils Percent Auto 1.7 % (0-4); Hematocrit 42.6 % (37.0-47.0); Hemoglobin 14.1 g/dl (12.0-16.0); Imm Gran Abs Auto 0.04 X10*3/uL (0.00-0.03); Imm Gran Pct Auto 0.4 % (0.0-0.4); Lymphocytes Absolute Auto 2.3 X10*3/uL (1.2-4.9); Lymphocytes Percent Auto 22.9 % (20-40); Mean Corpuscular HGB Conc 33.1 g/dl (31.0-35.0); Mean Corpuscular Hemoglobin 28.6 pg (27.0-33.0); Mean Corpuscular Volume 86.4 fL (80.0-98.0); Mean Platelet Volume 10.8 fL (9.4-12.3); Monocytes Absolute Auto 0.7 X10*3/uL (0.1-1.2); Monocytes Percent Auto 6.6 % (2-11); Neutrophils Absolute Auto 6.9 x10*3/uL (2.0-8.3); Neutrophils Percent Auto 67.9 % (45-73); Platelet Count 239 X10*3/uL (160-400); Red Blood Count 4.93 X10*6/uL (4.20-5.50); Red Cell Distribution Width 12.3 % (11.0-16.0); White Blood Count 10.1 X10*3/uL (4.8-10.8)
[2024-02-23 07:32] LABS: Estimated Average Glucose 303 mg/dL; Hemoglobin A1c % 12.2 % (<6.0)
[2024-02-23 07:52] LABS: Alanine Aminotransferase 15 U/L (0-31); Alkaline Phosphatase 54 U/L (39-117); Anion Gap 16 (12-20); Aspartate Amino Transferase 13 U/L (5-31); Bilirubin Total 0.3 mg/dL (0.0-1.0); Blood Urea Nitrogen 8 mg/dL (9-16); Calcium 9.2 mg/dL (8.4-10.2); Carbon Dioxide 26 mmol/L (22-29); Chloride 99 mmol/L (96-108); Cholesterol 158 mg/dL (<200); Estimated Glomerular Filt Rate > 60; Glucose Fasting 211 mg/dL (60-99); HDL Cholesterol 44 mg/dL (>40); LDL Cholesterol Calculated 94 mg/dL (<100); Potassium 4.5 mmol/L (3.3-5.1); Sodium 136 mmol/L (135-145); Total Protein 6.7 g/dL (6.5-8.0); Triglycerides 100 mg/dL (<150)
== END 2024-02-23 05:59 | disposition home or self-care (01) ==
LOC: HO.LAB 05:58
PROVIDERS: PCP Internal Medicine; Visit Provider Internal Medicine
DX: I10 Essential (primary) hypertension (principal); E78.00 Pure hypercholesterolemia, unspecified; E11.9 Type 2 diabetes mellitus without complications
CPT/HCPCS: 36415; 80053; 80061; 83036; 85025

== ENCOUNTER 2024-05-14 05:59 | Outpatient (REF) | payer MEDICARE, SELFPAY ==
[2024-05-14 07:54] LABS: Estimated Average Glucose 295 mg/dL; Hemoglobin A1C 363.7041 umol/L; Hemoglobin A1c % 11.9 % (<6.0); Total Hemoglobin (HGBA1C) 3422.9475 umol/L
[2024-05-14 08:26] LABS: Anion Gap 14 (12-20); Blood Urea Nitrogen 8 mg/dL (9-16); Calcium 8.7 mg/dL (8.4-10.2); Carbon Dioxide 30 mmol/L (22-29); Chloride 97 mmol/L (96-108); Estimated Glomerular Filt Rate > 60; Glucose Random 256 mg/dL (60-115); Sodium 137 mmol/L (135-145)
== END 2024-05-14 06:00 | disposition home or self-care (01) ==
LOC: HO.LAB 05:59
PROVIDERS: PCP Internal Medicine; Visit Provider Internal Medicine
DX: E11.9 Type 2 diabetes mellitus without complications (principal); I10 Essential (primary) hypertension; K21.9 Gastro-esophageal reflux disease without esophagitis
CPT/HCPCS: 36415; 80048; 83036

== ENCOUNTER 2024-08-30 06:01 | Outpatient (REF) | payer MEDICARE, SELFPAY ==
[2024-08-30 07:32] LABS: Estimated Average Glucose 252 mg/dL; Hemoglobin A1c % 10.4 % (<6.0)
[2024-08-30 07:54] LABS: Alanine Aminotransferase 12 U/L (0-31); Alkaline Phosphatase 44 U/L (39-117); Anion Gap 11 (12-20); Aspartate Amino Transferase 15 U/L (5-31); Bilirubin Total 0.4 mg/dL (0.0-1.0); Blood Urea Nitrogen 8 mg/dL (9-16); Calcium 9.1 mg/dL (8.4-10.2); Carbon Dioxide 28 mmol/L (22-29); Chloride 100 mmol/L (96-108); Estimated Glomerular Filt Rate > 60; Glucose Random 205 mg/dL (60-115); Potassium 4.2 mmol/L (3.3-5.1); Sodium 135 mmol/L (135-145)
[2024-08-30 07:56] LABS: Creatinine Urine 95.75 mg/dL
[2024-08-30 08:07] LABS: Microalbum/Creatinine Ratio Ur 1332.6 ug/mg cr (<30)
== END 2024-08-30 06:02 | disposition home or self-care (01) ==
LOC: HO.LAB 06:01
PROVIDERS: PCP Internal Medicine; Visit Provider Internal Medicine
DX: E11.9 Type 2 diabetes mellitus without complications (principal); I10 Essential (primary) hypertension; K21.9 Gastro-esophageal reflux disease without esophagitis
CPT/HCPCS: 36415; 80053; 82043; 82570; 83036

== ENCOUNTER 2024-09-03 14:43 | Outpatient (AMB) | payer MEDICARE, SELFPAY ==
--- NOTE | 2024-09-03 15:17 | MHC.PC.OV ---
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 Mother Heart disease Social History Housing: House Alcohol intake: never Patient Tobacco Use Status: Former Tobacco user e-Cigarette/Vaping Use: Former Use service: No Current occupational status: retired Cognitive needs: No Hearing needs: No Vision needs: Yes (rx glasses) Questionnaire PHQ-9 Over the last 2 weeks, how often have you been bothered by any of the following problems? 1. Little interest or pleasure in doing things: not at all 2. Feeling down, depressed, or hopeless: not at all 3. Trouble falling or staying asleep, or sleeping too much: not at all 4. Feeling tired or having little energy: not at all 5. Poor appetite or overeating: not at all 6. Feeling bad about yourself - or that you are a failure or have let yourself or your family down: not at all 7. Trouble concentrating on things, such as reading the newspaper or watching television: not at all 8. Moving or speaking so slowly that other people could have noticed. Or the opposite - being so fidgety or restless that you have been moving around a lot more than usual: not at all 9. Thoughts that you would be better off or of hurting yourself in some way: not at all Total score: 0 Source: Developed by Drs. Luc Yanez, Jennifer Howard, Keyon Hernandez and colleagues, with an educational yana from [employer]. Thrive Questionnaire Date Thrive assessed: 09/03/24 I am a: Patient Within the past 12 months, did the food you bought not last and you didn't have the money to get more?: Never true Within the past 12 months, did you worry whether your food would run out before you got money to buy more?: Never true Do you have trouble paying for medicines?: No Do you have trouble getting transportation to medical appointments?: No Do you have trouble paying your heating and electricity bill?: No Do you have trouble taking care of your child, family member or friend?: No Do you have trouble with day-to-day activities such as bathing, preparing meals, shopping, managing finances, etc.?: No Are you currently unemployed and looking for a job?: No Are you interested in more education?: No THRIVE Score: 0 AUDIT C Alcohol Use Questionnaire (AUDIT-C) 1. How often do you have a drink containing alcohol?: Never 3. How often do you have six or more drinks on one occasion?: Never Total Score: 0 ABIEL-7 AMB Questionnaire ABIEL-7 Date ABIEL - 7 assessed: 09/03/24 Feeling nervous, anxious, or on edge: 0 = Not at all Not being able to stop or control worryin = Not at all Worrying too much about different things: 0 = Not at all Trouble relaxin = Not at all Being so restless that it is hard to sit still: 0 = Not at all Becoming easily annoyed or irritable: 0 = Not at all Feeling afraid as if something awful might happen: 0 = Not at all Total ABIEL-7 score (0-4 normal; 5-9 mild; 10-14 moderate; 15-21 severe): 0 Source: Developed by Drs. Luc Yanez, Keyon Diggs and colleagues, with an educational yana from [employer]. Physical exam (Primary Care) Vital Signs: Last Vital Signs Temp 97.7 F 09/03/24 15:26 Pulse 68 09/03/24 15:26 BP 134/76 09/03/24 15:26 Pulse Ox 98 09/03/24 15:26 Oxygen Delivery Method Room Air 09/03/24 15:26 Tobacco/Smoking Status: Tobacco use Status Tobacco use date assessed 09/03/24 09/03/24 15:19 Patient Tobacco Use Status Former Tobacco user 09/03/24 15:19 e-Cigarette/Vaping Use Former Use 09/03/24 15:34 PHQ-9: PHQ-9 Score PHQ-9: Total score 0 09/03/24 15:34 Thrive Assessment: Date of Thrive Assessment Date Thrive assessed 09/03/24 09/03/24 15:19 Coding Level of Care Code New Pt Level 4 (28704) Complex EM visit Add On G2211 Diagnoses Type 2 diabetes mellitus with unspecified complications E11.8 Assessment & Plan Assessment & Plan (1) Type 2 diabetes mellitus with unspecified complications: Code(s): E11.8 - Type 2 diabetes mellitus with unspecified complications Category: Medical Plan: Poorly controlled DM. Reluctant to start insulin. Will not consider Jardiance due to cost. Ozempic increased to 1 mg. Endocrinology consult ordered. Plan History of Present Illness The patient is a 74-year-old female presenting with poor glycemic control and diabetes management. The patient reports a historical lack of glycemic control with an A1c currently at 10.4%. She reports taking Metformin 1000 mg and Glipizide 10 mg both in morning and evening, and administers 0.5 mg of Ozempic once weekly. The patient also manages hyperlipidemia with atorvastatin every other day. She has observed glucose levels around 150 mg/dL, a reduction from consistently high levels over 300 mg/dL but remains poorly controlled. She engages in regular exercise on a stationary bike twice daily, substituting this for treadmill use. Despite recommendations to consider insulin therapy due to persistent high blood sugar levels and a familial predisposition to diabetes complications, she is apprehensive due to negative family experiences with insulin. The fear is rooted in severe consequences observed in her father and brother. She remains determined to avoid insulin, exploring alternatives like dosage adjustments for existing treatments. Social History - Exercises regularly on a stationary bike twice daily. - Previous use of a treadmill, ceased a couple of years ago. - Former employee at a [employer] for 17 years, currently not working. - Strong family connections, maintaining close relationships, especially with a former boss. - Quit smoking 21 years ago and denies alcohol use. - Anabaptism adherence to prescribed diet, despite challenges with junk food preference. Review of Systems - Endocrine: Reports not experiencing dizziness. - General: Denies weight gain or significant weight loss. Physical Exam General: Cooperative and healthy appearing Nutritional Appearance: Well nourished Orientation/consciousness: Patient oriented x3 Limitations: No limitations Head: Normal to inspection General: Appearance normal, both eyes and all related structures Neck: Normal visual inspection Chest: Normal palpation of entire chest wall Respiratory: Normal respiratory effort Neurology: Patient oriented x3 Results - Labs: A1c recorded at 10.4%, indicating poor glycemic control. Plan 1. 5 mg to 0.75 mg weekly to manage high blood sugar levels, aiming to enhance glycemic control and facilitate weight loss. A consultation with an tube bending machine operator is recommended for further diabetes management insights, particularly evaluating modern insulin therapy options and addressing the patient's concerns. The insurance coverage for alternative medications like Jardiance will be reviewed to make the treatment affordable.: Patient was informed and verbally consented to the use of an ambient scribe for clinic note documentation during this visit. Discussion Notes During the visit, we reviewed the patient's diabetes management plan, stressing the importance of tighter glycemic control with her A1c currently at 10.4%. I recommended escalating her Ozempic dosage to 0.75 mg weekly, detailing the benefits of better blood sugar control and weight management. I emphasized maintaining the current medication budget despite the increase. We discussed family concerns about insulin, suggesting an endocrinology consult for a second opinion to address her apprehension through education on modern insulins and alternatives such as Trulicity. The patient fully understands her options and the need for improved diabetes control to prevent long-term complications. We aim to better tailor her medication regimen upon clarifying insurance coverage for newer PM medications. Patient Instructions - Increase Ozempic dosage to 0.75 mg once weekly as advised. - Consider consulting an tube bending machine operator to explore diabetes management options, especially regarding insulin. - Continue engaging in regular exercise, focusing on both stationary bike and possible treadmill use. - Review current medication coverage with your insurance provider for any potential cost savings. - Pay consistent attention to your diet to further help control blood sugar levels. - Follow up for further discussion and evaluation as needed. Orders: Referrals Endocrinology Referral E11.8 - Type 2 diabetes mellitus with unspecified complications Medications: New semaglutide (Ozempic) 1 mg (0.75 mL) subcut QWEEK 3 mL 0RF
[2024-09-03 15:26] VITALS: BP 134/76; PULSE 68; TEMP 36.5; O2SAT 98
== END 2024-09-03 16:05 | disposition home or self-care (01) ==
LOC: HO.HMCHD 14:43
PROVIDERS: PCP Internal Medicine; Visit Provider Internal Medicine
DX: E11.8 Type 2 diabetes mellitus with unspecified complications (principal)

== ENCOUNTER → 2024-09-03 14:43 | Outpatient (BNVA) | payer MEDICARE, SELFPAY | PROVIDERS: PCP Internal Medicine; Visit Provider Internal Medicine | DX: E11.8 Type 2 diabetes mellitus with unspecified complications (principal) | CPT/HCPCS: 99202 ==

== ENCOUNTER 2024-12-03 06:03 | Outpatient (REF) | payer MEDICARE, SELFPAY ==
[2024-12-03 07:32] LABS: Hematocrit 44.6 % (37.0-47.0); Hemoglobin 14.7 g/dl (12.0-16.0); Mean Corpuscular Hemoglobin 28.4 pg (27.0-33.0); Mean Corpuscular Volume 86.3 fL (80.0-98.0); Mean Platelet Volume 11.3 fL (9.4-12.3); Platelet Count 236 X10*3/uL (160-400); Red Blood Count 5.17 X10*6/uL (4.20-5.50); Red Cell Distribution Width 12.4 % (11.0-16.0); White Blood Count 8.2 X10*3/uL (4.8-10.8)
[2024-12-03 07:45] LABS: Estimated Average Glucose 255 mg/dL; Hemoglobin A1c % 10.5 % (<6.0); Total Hemoglobin (HGBA1C) 3816.6945 umol/L
[2024-12-03 08:07] LABS: Alanine Aminotransferase 14 U/L (0-31); Albumin Level 4.4 g/dL (3.5-5.0); Alkaline Phosphatase 47 U/L (39-117); Anion Gap 14 (12-20); Aspartate Amino Transferase 19 U/L (5-31); Bilirubin Direct 0.2 mg/dL (0.0-0.5); Bilirubin Total 0.5 mg/dL (0.0-1.0); Blood Urea Nitrogen 13 mg/dL (9-16); Calcium 9.5 mg/dL (8.4-10.2); Carbon Dioxide 29 mmol/L (22-29); Chloride 99 mmol/L (96-108); Cholesterol 182 mg/dL (<200); Estimated Glomerular Filt Rate > 60; Glucose Random 173 mg/dL (60-115); HDL Cholesterol 51 mg/dL (>40); LDL Cholesterol Calculated 110 mg/dL (<100); Potassium 4.5 mmol/L (3.3-5.1); Sodium 137 mmol/L (135-145); Total Protein 6.9 g/dL (6.5-8.0); Triglycerides 109 mg/dL (<150)
[2024-12-03 08:25] LABS: Thyroid Stimulating Hormone 3.52 uIU/mL (0.32-4.0)
[2024-12-03 08:34] LABS: Creatinine Urine 63.13 mg/dL
[2024-12-03 08:43] LABS: Microalbum/Creatinine Ratio Ur 1005.8 ug/mg cr (<30)
== END 2024-12-03 06:04 | disposition home or self-care (01) ==
LOC: HO.LAB 06:03
PROVIDERS: PCP Internal Medicine; Visit Provider Internal Medicine
DX: E11.8 Type 2 diabetes mellitus with unspecified complications (principal)
CPT/HCPCS: 36415; 80048; 80061; 80076; 82043; 82570; 83036; 84443; 85027

== ENCOUNTER 2024-12-05 08:46 | Outpatient (AMB) | payer MEDICARE, SELFPAY ==
--- NOTE | 2024-12-05 08:52 | A.OFFPC_ITS ---
Vital Signs 12/05/24 08:57 Height 5 ft 6 in Weight 194 lb BMI 31.3 BP 132/76 Blood Pressure Location Lt brachial Position Sitting Pulse 57 Pulse Source Pulse Oximeter Temp 97.6 F Temp Source Axillary Pulse Oximetry (%) 97 Oxygen Delivery Method Room Air Intake Visit Reasons: 3 Month F/U Inpatient Auditor Required: No Accompanied by: Self / Same As Patient Allergies No Known Allergies Allergy (Verified 12/05/24 08:52) Tobacco use date assessed: 12/05/24 Fall risk assessment: No Falls in past year Last assessed Fall Risk: 12/05/24 Dental Screening Dental Screen Date: 12/05/24 Did you have a dental visit in the last 12 months?: No Did you have a dental problem in the last 6 months where you did not have access to dental care?: No [facility] Surgical History No pertinent past surgical history Family History (Updated 12/05/24 @ 09:02 by Jie Horton MA) Father No problems noted. Mother Heart disease Social History Housing: House Alcohol intake: never Patient Tobacco Use Status: Former Tobacco user e-Cigarette/Vaping Use: Former Use service: No Current occupational status: retired Cognitive needs: No Hearing needs: No Vision needs: Yes (rx glasses) Questionnaire PHQ-9 Over the last 2 weeks, how often have you been bothered by any of the following problems? 1. Little interest or pleasure in doing things: not at all 2. Feeling down, depressed, or hopeless: not at all 3. Trouble falling or staying asleep, or sleeping too much: not at all 4. Feeling tired or having little energy: not at all 5. Poor appetite or overeating: not at all 6. Feeling bad about yourself - or that you are a failure or have let yourself or your family down: not at all 7. Trouble concentrating on things, such as reading the newspaper or watching television: not at all 8. Moving or speaking so slowly that other people could have noticed. Or the opposite - being so fidgety or restless that you have been moving around a lot more than usual: not at all 9. Thoughts that you would be better off or of hurting yourself in some way: not at all Total score: 0 Source: Developed by Drs. Luc Yanez, Jennifer Howard, Keyon Hernandez and colleagues, with an educational yana from [employer]. Thrive Questionnaire Date Thrive assessed: 12/05/24 I am a: Patient Within the past 12 months, did the food you bought not last and you didn't have the money to get more?: Never true Within the past 12 months, did you worry whether your food would run out before you got money to buy more?: Never true Do you have trouble paying for medicines?: No Do you have trouble getting transportation to medical appointments?: No Do you have trouble paying your heating and electricity bill?: No Do you have trouble taking care of your child, family member or friend?: No Do you have trouble with day-to-day activities such as bathing, preparing meals, shopping, managing finances, etc.?: No Are you currently unemployed and looking for a job?: No Are you interested in more education?: No THRIVE Score: 0 AUDIT C Alcohol Use Questionnaire (AUDIT-C) 1. How often do you have a drink containing alcohol?: Never 3. How often do you have six or more drinks on one occasion?: Never Total Score: 0 ABIEL-7 AMB Questionnaire ABIEL-7 Date ABIEL - 7 assessed: 12/05/24 Feeling nervous, anxious, or on edge: 0 = Not at all Not being able to stop or control worryin = Not at all Worrying too much about different things: 0 = Not at all Trouble relaxin = Not at all Being so restless that it is hard to sit still: 0 = Not at all Becoming easily annoyed or irritable: 0 = Not at all Feeling afraid as if something awful might happen: 0 = Not at all Total ABIEL-7 score (0-4 normal; 5-9 mild; 10-14 moderate; 15-21 severe): 0 Source: Developed by Drs. Luc Yanez, Keyon Diggs and colleagues, with an educational yana from [employer]. Physical exam (Primary Care) Vital Signs: Last Vital Signs Temp 97.6 F 12/05/24 08:57 Pulse 57 12/05/24 08:57 BP 132/76 12/05/24 08:57 Pulse Ox 97 12/05/24 08:57 Oxygen Delivery Method Room Air 12/05/24 08:57 BMI result Body Mass Index 31.3 Tobacco/Smoking Status: Tobacco use Status Tobacco use date assessed 12/05/24 12/05/24 08:54 Patient Tobacco Use Status Former Tobacco user 12/05/24 08:54 e-Cigarette/Vaping Use Former Use 12/05/24 08:54 PHQ-9: PHQ-9 Score PHQ-9: Total score 0 12/05/24 09:04 Thrive Assessment: Date of Thrive Assessment Date Thrive assessed 12/05/24 12/05/24 08:54 Coding Level of Care Code Est Pt Level 4 (70587) Complex EM visit Add On G2211 Diagnoses Type 2 diabetes mellitus with unspecified complications E11.8 Assessment & Plan Assessment & Plan (1) Type 2 diabetes mellitus with unspecified complications: Code(s): E11.8 - Type 2 diabetes mellitus with unspecified complications Category: Medical Plan History of Present Illness - The patient is a 74-year-old female presenting with management of Type 2 Diabetes Mellitus. - Reports previous blood glucose levels in the high 200s, now reduced to the 100s, with a hemoglobin A1c of 10.5%. - Currently not on insulin, concerned about additional medication needs. - Uses a stationary bike, reducing morning glucose to 158-168 mg/dL. - Medications include metformin, glipizide, and Ozempic; concerned about Ozempic side effects and cost. - Admits to dietary indiscretions, contributing to elevated A1c. - Hesitant to switch to newer medications like Jardiance due to cost concerns. Social History - The patient reports being a foodie and consuming foods such as popcorn and potato chips, which may affect her diabetes management. Review of Systems - Musculoskeletal: Reports stiffness in fingers, possibly related to Ozempic. Physical Exam General: Cooperative and healthy appearing Nutritional Appearance: Well nourished Orientation/consciousness: Patient oriented x3 Limitations: No limitations Head: Normal to inspection General: Appearance normal, both eyes and all related structures Neck: Normal visual inspection Chest: Normal palpation of entire chest wall Respiratory: Normal respiratory effort Neurology: Patient oriented x3 Results - Labs: Hemoglobin A1c is 10.5%. Plan 1. Type 2 Diabetes Mellitus - Need for improved glycemic control with current medications insufficient. - Advised dietary changes to reduce carbohydrate intake and monitor postprandial glucose. - Discussed medication adjustments, including Jardiance or pioglitazone, considering cost. - Continue exercise regimen with stationary bike for glucose management. Discussion Notes During the visit, I discussed with the patient the importance of achieving better glycemic control due to her elevated hemoglobin A1c levels. We reviewed her current medication regimen, including metformin, glipizide, and Ozempic, and considered potential adjustments such as adding Jardiance or pioglitazone, taking into account her concerns about cost. I emphasized the need for dietary modifications to reduce carbohydrate intake and advised her to continue monitoring her blood glucose levels postprandially. We also discussed the benefits of maintaining her exercise routine with the stationary bike to aid in glucose management. Patient Instructions - Monitor blood glucose levels after meals and aim for readings below 200 mg/dL. - Reduce intake of carbohydrates and sugary foods. - Continue using the stationary bike regularly to help manage blood glucose levels. - Discuss medication costs with the pharmacy and consider options like Jardiance or pioglitazone. Medications: New empagliflozin (Jardiance) 25 mg PO DAILY 30 tabs 1RF pioglitazone (Actos) 15 mg PO DAILY 30 tabs 1RF
[2024-12-05 08:57] VITALS: BP 132/76; PULSE 57; TEMP 36.4; O2SAT 97; BMI 31.3
--- OUTSIDE RECORDS SUMMARY | 2024-12-05 09:16 | XMS_ITS | Patient Health Record ---
Author Organization [facility] Address [address] [place] [id number] Care Team Providers Care Merchandiser Seasonal Name Role Phone Michele Barclay Jr [phone] Reason For Referral No Information Plan Of Treatment No Information
== END 2024-12-05 09:22 | disposition home or self-care (01) ==
LOC: HO.HMCHD 08:46
PROVIDERS: PCP Internal Medicine; Visit Provider Internal Medicine
DX: E11.8 Type 2 diabetes mellitus with unspecified complications (principal)

== ENCOUNTER → 2024-12-05 08:46 | Outpatient (BNVA) | payer MEDICARE, SELFPAY | PROVIDERS: PCP Internal Medicine; Visit Provider Internal Medicine | DX: E11.9 Type 2 diabetes mellitus without complications (principal); Z79.84 Long term (current) use of oral hypoglycemic drugs; Z79.899 Other long term (current) drug therapy | CPT/HCPCS: 99212 ==

== ENCOUNTER 2025-03-07 09:26 | Outpatient (REF) | payer MEDICARE, SELFPAY ==
[2025-03-07 10:54] LABS: Hemoglobin A1C 350.0590 umol/L; Total Hemoglobin (HGBA1C) 3546.7830 umol/L
[2025-03-07 10:59] LABS: Cholesterol 196 mg/dL (<200); HDL Cholesterol 51 mg/dL (>40); Triglycerides 129 mg/dL (<150)
== END 2025-03-07 09:27 | disposition home or self-care (01) ==
LOC: HO.10HDL 09:26
PROVIDERS: Visit Provider Student in an Organized Health Care Education/Training Program
DX: E11.8 Type 2 diabetes mellitus with unspecified complications (principal); I10 Essential (primary) hypertension
CPT/HCPCS: 36415; 80061; 83036; 84443

== ENCOUNTER 2025-03-13 09:01 | Outpatient (AMB) | payer MEDICARE, SELFPAY ==
--- NOTE | 2025-03-13 09:03 | A.OFFPC_ITS ---
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: No Accompanied by: Self / Same As Patient Allergies No Known Allergies Allergy (Verified 03/13/25 09:03) Medication List - Last Reconciled 03/13/25 by LINDSEY Davis atorvastatin 10 mg PO DAILY biotin 1 mg PO DAILY glipizide 10 mg PO BID lisinopril 10 mg PO DAILY metformin 1,000 mg PO BID omega-3 fatty acids (Fish Oil Concentrate) 1,000 mg PO DAILY omeprazole 20 mg PO DAILY tirzepatide (Mounjaro) 5 mg (0.5 mL) subcut QWEEK turmeric mg PO Tobacco use date assessed: 12/05/24 Dental Screening Dental Screen Date: 12/05/24 HPI HPI Comments History of Present Illness Details 74-year-old female with history of type 2 diabetes, aortic stenosis, hyperlipidemia, hypertension, hypersomnia, GERD presenting to the office today for management of chronic conditions and to establish care. She was previously a patient of Dr. Henderson, last seen about 1 year ago. Type 2 diabetes-has been uncontrolled. Updated A1c in the last week was 11.2%, increased from 10.1. She had been started on Jardiance and Actos but discontinued these because she felt they were making her lightheaded. She has continued on metformin 1000 mg twice daily and glipizide 10 mg twice daily. Has also been using Ozempic 0.5 mg weekly. She acknowledges she is not compliant with diabetic diet. She does ride her exercise bike twice daily. Eye exams are overdue, last examined 1.5 years ago though does deny any diabetic complications Hyperlipidemia-last LDL 120. Is on atorvastatin 10 mg daily. She is also taking [place] 3 Hypertension-uncontrolled with blood pressure 180/88. Not always compliant with lisinopril, refuses additional therapies Aortic stenosis-last echo 04/2023 showed mild Concerns: None Health maintenance: No longer undergoing colonoscopy No longer undergoing mammogram Not interested in DEXA scan ROS: General: No fevers, malaise, unintentional weight loss HEENT: No blurred vision, diplopia. No sore throat, nasal congestion, rhinorrhea, sinus pain, ear pain Cardiovascular: No chest pain, palpitations, or leg edema Respiratory: No shortness of breath, wheezing, cough GI: No abdominal pain, nausea, vomiting, diarrhea, constipation, melena, hematochezia : No dysuria, hematuria, increased urinary frequency, decreased urinary output MSK: No myalgia, back pain Neuro: No headaches, weakness, paresthesias Skin: No rashes or lesions EXAM: Constitutional - Awake and Alert, No apparent distress Eyes - PERRL Cardiovascular - S1S2, RRR, No edema Respiratory - Normal lung expansion, Normal respiratory effort, No respiratory distress, CTA bilaterally Extremities - no calf tenderness bilaterally, no swelling Skin - Warm/Dry Neurological - Alert & oriented x3 Psychological - Appropriate affect PFSH Medical History (Updated 03/13/25 @ 09:33 by LINDSEY Davis) HLD (hyperlipidemia) Surgical History No pertinent past surgical history Family History (Updated 12/05/24 @ 09:02 by Jie Horton MA) Father No problems noted. Mother Heart disease Social History Housing: House Alcohol intake: never Patient Tobacco Use Status: Former Tobacco user e-Cigarette/Vaping Use: Former Use service: No Current occupational status: retired Cognitive needs: No Hearing needs: No Vision needs: Yes (rx glasses) Questionnaire Thrive Questionnaire Date Thrive assessed: 12/05/24 ABIEL-7 AMB Questionnaire ABIEL-7 Date ABIEL - 7 assessed: 12/05/24 Source: Developed by Drs. Luc Yanez, Jennifer Howard, Keyon Hernandez and colleagues, with an educational yana from [employer]. Physical exam (Primary Care) Vital Signs: Last Vital Signs Temp 97.8 F 03/13/25 09:08 Pulse 72 03/13/25 09:08 BP 180/88 H 03/13/25 09:08 Pulse Ox 98 03/13/25 09:08 Oxygen Delivery Method Room Air 03/13/25 09:08 BMI result Body Mass Index 30.8 Tobacco/Smoking Status: Tobacco use Status Tobacco use date assessed 12/05/24 03/13/25 09:03 Patient Tobacco Use Status Former Tobacco user 03/13/25 09:03 e-Cigarette/Vaping Use Former Use 03/13/25 09:03 Thrive Assessment: Date of Thrive Assessment Date Thrive assessed 12/05/24 03/13/25 09:03 Coding Level of Care Code Est Pt Level 4 (67353) Complex EM visit Add On G2211 Diagnoses Uncontrolled type 2 diabetes mellitus with hyperglycemia E11.65 Essential hypertension I10 HLD (hyperlipidemia) E78.5 Assessment & Plan Assessment & Plan (1) Uncontrolled type 2 diabetes mellitus with hyperglycemia: Code(s): E11.65 - Type 2 diabetes mellitus with hyperglycemia Plan: Worsening control. With A1c of 11.2% I have strongly recommended insulin but patient vehemently declines. Will try changing Ozempic to 5mg of Mounjaro weekly to hopefully gain better control over her diabetes. However she is counseled that she needs to make significant changes to her diet but does not seem to be concerned about this. Declines referral to diabetic nutrition counseling. She will continue metformin 1000 mg twice daily as well as glipizide 10 mg twice daily. She is convinced her glucometer does not work. Advised to continue checking glucose levels. She is again counseled on the risks of complications associated with uncontrolled type 2 diabetes which she states she is aware of. Continue with annual eye exams. She is also referred to endocrinology and is strongly recommended to keep this appointment. Follow- up in the office in 3 months with labs completed prior to visit (2) Essential hypertension: Code(s): I10 - Essential (primary) hypertension Category: Medical Plan: Uncontrolled. Strongly advised compliance with lisinopril 10 mg daily. Had previously been well-controlled. Declines additional therapies. (3) HLD (hyperlipidemia): Code(s): E78.5 - Hyperlipidemia, unspecified Category: Medical Plan: Uncontrolled with LDL 120, goal being less than 70. Increase atorvastatin to 40 mg daily. Diet changes as above Plan Follow-up in the office in 3 months with labs completed prior to visit. Orders: Orders Hemoglobin A1c 3 Months E11.8 - Type 2 diabetes mellitus with unspecified compl ications, E78.5 - Hyperlipidemia, unspecified, I10 - Essential (primary) hypertension Basic Metabolic Panel 3 Months E11.8 - Type 2 diabetes mellitus with unspecified complications, E78.5 - Hyperlipidemia, unspecified, I10 - Essential (primary) hypertension Lipid Panel 3 Months E11.8 - Type 2 diabetes mellitus with unspecified complications, E78.5 - Hyperlipidemia, unspecified, I10 - Essential (primary) hypertension Liver Panel 3 Months E11.8 - Type 2 diabetes mellitus with unspecified complications, E78.5 - Hyperlipidemia, unspecified, I10 - Essential (primary) hypertension Microalbumin, Random (w Creat) 3 Months E11.8 - Type 2 diabetes mellitus with unspecified complications, E78.5 - Hyperlipidemia, unspecified, I10 - Essential (primary) hypertension Referrals Endocrinology Referral E11.65 - Type 2 diabetes mellitus with hyperglycemia Medications: New tirzepatide (Mounjaro) 5 mg (0.5 mL) subcut QWEEK 2 mL 0RF atorvastatin (Lipitor) 40 mg PO DAILY 90 tabs 1RF Discontinued semaglutide (Ozempic) Discontinued Reason: Doctor's Order 0.5 mg (0.736 mL) subcut QWEEK 90 days 9.568 mL 0RF
[2025-03-13 09:08] VITALS: BP 180/88; PULSE 72; TEMP 36.6; O2SAT 98; BMI 30.8
--- OUTSIDE RECORDS SUMMARY | 2025-03-13 09:40 | XMS_ITS | Patient Health Record ---
Author Organization [facility] Address [address] [place] [id number] Care Team Providers Care Protein Scientist Name Role Phone Michele Barclay Jr Reason For Referral No Information Plan Of Treatment No Information
== END 2025-03-13 09:41 | disposition home or self-care (01) ==
LOC: HO.HMCHD 09:01
PROVIDERS: PCP Internal Medicine; Visit Provider Physician Assistant
DX: E11.65 Type 2 diabetes mellitus with hyperglycemia (principal); I10 Essential (primary) hypertension; E78.5 Hyperlipidemia, unspecified

== ENCOUNTER → 2025-03-13 09:01 | Outpatient (BNVA) | payer MEDICARE, SELFPAY | PROVIDERS: PCP Internal Medicine; Visit Provider Physician Assistant | DX: E11.65 Type 2 diabetes mellitus with hyperglycemia (principal); I10 Essential (primary) hypertension; E78.5 Hyperlipidemia, unspecified; I35.0 Nonrheumatic aortic (valve) stenosis; Z79.84 Long term (current) use of oral hypoglycemic drugs; Z79.899 Other long term (current) drug therapy | CPT/HCPCS: 99212 ==